=== PATIENT | female | born 1980 ===

== ENCOUNTER 2019-06-30 17:25 | Emergency (ER) | payer BC, OTHER ==
[~2019-06-30] VITALS: Ht 154.9 cm; Wt 73.8 kg
--- NOTE | 2019-06-30 18:45 | NUR ---
ASSUMED CARE OF PT AT THIS TIME. THIS IS A 38 YO FEMALE WHO PRESENTS TO THE ER C/O LEFT SIDE THROAT PAIN AND "FEELING A LUMP" X 1 MONTH. PT AO X 4. SKIN PWD. RESP EVEN AND UNLABORED. PT DENIES COUGH OR SHORTNESS OF BREATH. ADAN YANG HAS BEEN TO SEE PT AND DC ORDERS UP. WILL DC PT SHORTLY.
[2019-06-30 19:09] VITALS: BP 158/69
[2019-06-30] MEDS ORDERED: LEVO25TA2 PO (19:14)
== END 2019-06-30 19:15 | disposition home or self-care (01) ==
LOC: ED 19:09
DX: J02.9 Acute pharyngitis, unspecified (principal); R50.9 Fever, unspecified; E03.9 Hypothyroidism, unspecified
CPT/HCPCS: 99281